=== PATIENT | male | born 1990 | race African-American/Black ===

== ENCOUNTER 2017-05-25 08:48 | Emergency (ER) | payer SELFPAY ==
[~2017-05-25] VITALS: Ht 195.6 cm; Wt 108.9 kg
--- OUTSIDE RECORDS SUMMARY | 2017-05-25 08:55 | XMS REPORT | Continuity of Care Document ---
Author Author [facility] Organization [facility] Address Unknown Phone Unavailable Allergies There is no data. Medications There is no data. Problems Date Dx Coded Attending Type Code Diagnosis Diagnosed By 01/23/2017 NICOLE GROSS WORKING R03.0 Elevated blood-pressure reading, without diagnosis of hypertension 01/23/2017 NICOLE GROSS WORKING S83.412A Sprain of medial collateral ligament of left knee, initial encounter 05/09/2017 ADMITTING Other 05/09/2017 ADMITTING [id number] Abdominal Pain Procedures There is no data. Results Test Result Range CHLAMYDIA TRACHOMATIS BY AMPLIFIED PROBE - 05/14/17 09:45 CHLAMYDIA TRACH AMPLIFIED PROBE NEGATIVE NEGATIVE NEISSERIA GONORRHOEAE BY AMPLIFIED PROBE - 05/14/17 09:45 NEISSERIA GONORRHOEAE BY AMPLIFIED PROBE NEGATIVE NEGATIVE Encounters ACCT No. Visit Date/Time Discharge Status Pt. Type Provider Facility Loc./Unit Complaint [id number] 01/07/2017 00:00:00 01/07/2017 00:00:00 CAN Emergency [facility] E.ED [id number] 05/09/2017 18:55:00 05/09/2017 22:16:00 DIS Emergency [facility] FED [id number] 01/23/2017 20:32:00 01/23/2017 21:30:00 DIS Emergency NICOLE GROSS [facility] FED [id number] 05/14/2017 09:11:00 Document Registration
[2017-05-25] MEDS ORDERED: PLTR10OP OP (09:06)
--- NOTE | 2017-05-25 09:06 | ED EENT ---
History of Present Illness General Stated Complaint: RIGHT EYE REDNESS Source: patient Exam Limitations: no limitations History of Present Illness Date Seen by Provider: May 25, 2017 Time Seen by Provider: 08:58 Initial Comments Patient presents to the ER by private conveyance with a chief complaint of for 2 days she's had progressively worsening healing of an eyelash in his right eye , mattering that he's had to wipe why several times a day and redness of the white part of his eye. No recent sick contacts. He does not have a history of any eye issues or wear glasses or contacts. He says he's had no changes in his vision or blurriness. Review of Systems Constitutional: No chills, No diaphoresis Eyes: Denies Blindness, Denies Blurred Vision, Drainage Ears: Denies Dizziness, Denies Pain Nose: denies clots, denies congestion Mouth: denies clots, denies loose teeth Past Sccvord-Rvkqly-Uqrwwx Hx Patient Social History Alcohol Use: Denies Use Recreational Drug Use: Yes (MJ) Smoking Status: Current Everyday Smoker Type Used: Cigarettes Recent Foreign Travel: No Contact w/Someone Who Travel: No Visual Acuity : Eye Location: Bilaterally Vision Acuity Degree: 20/20 Physical Exam General Appearance: WD/WN, no apparent distress Eyes: right eye conjunctival inflammation, right eye other (fundal exam unremarkable), left eye normal inspection, bilateral eye PERRL, bilateral eye EOMI Ears: bilateral ear auricle normal, bilateral ear canal normal, bilateral ear TM normal Nose: normal inspection, No active bleeding Mouth/Throat: normal mouth inspection, pharynx normal Respiratory: no respiratory distress, no accessory muscle use Skin: normal color, warm/dry Departure Impression Impression: Primary Impression: Bacterial conjunctivitis of right eye Disposition: 01 HOME, SELF-CARE Condition: Stable Departure-Patient Inst. Decision time for Depature: 09:03 Referrals: NO,LOCAL PHYSICIAN (PCP/Family) Primary Care Physician Patient Instructions: Conjunctivitis (Pinkeye) (MIRNA) Add. 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 Scripts Polymyxin B Sulf/Trimethoprim (Polymyxin B-Tmp Eye Drops) 10 Ml Drops 2 DROPS OP QID for 7 Days, #10 ML 0 Refills Prov: HARI HERNANDEZ 05/25/17 Work/School Note: Work Release Form Date Seen in the Emergency Department: May 25, 2017 Return to Work: May 26, 2017 Restrictions: No Restrictions HARI HERNANDEZ May 25, 2017 09:06
[2017-05-25 09:10] VITALS: BP 142/78
== END 2017-05-25 09:10 | disposition home or self-care (01) ==
LOC: ER 08:51
DX: H10.89 Other conjunctivitis (principal); B96.89 Other specified bacterial agents as the cause of diseases classified elsewhere; F12.90 Cannabis use, unspecified, uncomplicated; F17.210 Nicotine dependence, cigarettes, uncomplicated
CPT/HCPCS: 99282